=== PATIENT | male | born 1945 | race Caucasian/White ===

== ENCOUNTER 2021-01-11 11:02 | Outpatient (CLI) | payer MEDICARE, OTHER | END 2021-01-11 11:03 | disposition short-term general hospital (02) | LOC: EMS 11:02 | DX: G81.91 Hemiplegia, unspecified affecting right dominant side (principal); K92.1 Melena; F41.9 Anxiety disorder, unspecified | CPT/HCPCS: A0425; A0429 ==

== ENCOUNTER 2022-04-23 22:29 | Outpatient (CLI) | payer MEDICARE, OTHER | END 2022-04-23 22:30 | disposition short-term general hospital (02) | LOC: EMS 22:29 | DX: R06.02 Shortness of breath (principal) | CPT/HCPCS: A0425; A0427; A0888 ==

== ENCOUNTER 2022-05-30 05:46 | Outpatient (CLI) | payer MEDICARE, OTHER | END 2022-05-30 05:47 | disposition critical access hospital (66) | LOC: EMS 05:46 | DX: R06.00 Dyspnea, unspecified (principal) | CPT/HCPCS: A0425; A0427 ==

== ENCOUNTER 2022-06-01 09:52 | Outpatient (CLI) | payer MEDICARE, OTHER | END 2022-06-01 09:53 | disposition E | LOC: EMS 09:52 ==